=== PATIENT | female | born 1990 | race Caucasian/White ===

== ENCOUNTER 2021-10-22 11:41 | Inpatient (IN) | payer OTHER ==
[~2021-10-22] VITALS: Ht 162.6 cm; Wt 99.8 kg
--- NOTE | 2021-10-22 15:51 | NUR ---
RT COLLECTED RAPID COVID 19 SWAB WITH NO COMPLICATIONS AT THIS TIME.
--- NOTE | 2021-10-22 18:16 | PR ---
[facility] [address] [facility] [place], [place] [address] Signed Progress Notes IP Datetime Report Generated by CPN: 10/22/2021 18:15 PROGRESS NOTES: [id number] Other Impressions: Slow progress Plan: Augmentation; Anticipate Vaginal Delivery VITAL SIGNS: [id number] Vital Signs: Reviewed; Within Normal Limits EXAM: [id number] Dilatation: 4.5 Effacement: 80 Station: -3 MEMBRANES: [id number] Membranes Status: Bulging ROM Note: ROM at 0730 this morning per patient Comments: Patient feeling contractions, but not too strong. No change in cervix for past 2 hours -> will start Pitocin augmentation -> OK for Epidural FETUS A: [id number] FHR Baseline: 130 Variability: Moderate 6-25bpm Accelerations: 15X15 Comments on Fetus A: Cervix 1.5 cm, Vtx per Rn, FETUS B: [id number] Signing Physician: Dominique Tate MD Copies: ~ *Electronically Signed* 10/22/21 1815 DOMINIQUE TATE MD PATIENT NAME: LUCRECIA HUANG PROGRESS NOTE DATE OF : 86 PHYSICIAN: DOMINIQUE TATE MD RPT #: [id number] REPORT IS CONFIDENTIAL AND NOT TO BE RELEASED WITHOUT AUTHORIZATION
--- NOTE | 2021-10-22 22:52 | PR ---
[facility] [address] [place], [place] [address] Signed Progress Notes IP Datetime Report Generated by CPN: 10/22/2021 22:52 PROGRESS NOTES: [id number] Other Impressions: Slow Progress Procedures: Intrauterine Pressure Catheter; Scalp Electrode Plan: Continue Present Management; Augmentation VITAL SIGNS: [id number] Vital Signs: Reviewed; Within Normal Limits EXAM: [id number] Dilatation: 5.0 Effacement: 90 Station: -1 MEMBRANES: [id number] Membranes Status: Ruptured ROM Note: ROM at 0730 this morning per patient Comments: Only 0.5 cm change in past 6 hours, on Pitocin for last 4 hours, with good contraction pattern. Already so me capurt on vertex. IUPC and FEKG applied. Will contineu with Pitocin augmentation, bukt may need to proceed with C/S, if arrest of dilation continues. Discussed with patient. FETUS A: [id number] FHR Baseline: 130 Variability: Moderate 6-25bpm Accelerations: 15X15 Comments on Fetus A: Cervix 1.5 cm, Vtx per Rn, FETUS B: [id number] Signing Physician: Dominique Tate MD Copies: ~ *Electronically Signed* 10/22/21 864 DOMINIQUE TATE MD PATIENT NAME: LUCRECIA HUANG PROGRESS NOTE DATE OF : 86 PHYSICIAN: DOMINIQUE TATE MD RPT #: [id number] REPORT IS CONFIDENTIAL AND NOT TO BE RELEASED WITHOUT AUTHORIZATION
--- NOTE | 2021-10-23 00:03 | PR ---
[facility] [address] [place], [place] [address] Signed Progress Notes IP Datetime Report Generated by CPN: 10/23/2021 00:03 PROGRESS NOTES: [id number] Impression: Arrest of Dilatation/Descent Other Impressions: Slow Progress Procedures: Intrauterine Pressure Catheter; Scalp Electrode Other Procedures: Stop Pitocin Plan: Deliver- Section Informed Consent Obtain: Section Delivery; Risks, Benefits and Alternatives Discussed VITAL SIGNS: [id number] Vital Signs: Reviewed; Within Normal Limits EXAM: [id number] Dilatation: 5.0 Effacement: 90 Station: -1 MEMBRANES: [id number] Membranes Status: Ruptured ROM Note: ROM at 0730 this morning per patient Comments: No real change in 7 hours and 5 hours on Pitocin, with strong, adequate contractions. Discussed C/S risks vs benefits, option of continuing labor, but unlikely to chnage after stalling out this long. Patient agrees to C/S. OR and Anesthesia called faculty i on call medical assistant to OR for Primary C/S for Failure to Progress FETUS A: [id number] FHR Baseline: 130 Variability: Moderate 6-25bpm Accelerations: 15X15 Comments on Fetus A: Cervix 1.5 cm, Vtx per Rn, FETUS B: [id number] Signing Physician: Dominique Tate MD Copies: ~ *Electronically Signed* 10/23/21 DOMINIQUE AMAYA MD PATIENT NAME: LUCRECIA HUANG PROGRESS NOTE DATE OF : 86 PHYSICIAN: DOMINIQUE TATE MD RPT #: [id number] REPORT IS CONFIDENTIAL AND NOT TO BE RELEASED WITHOUT AUTHORIZATION
--- NOTE | 2021-10-23 02:14 | NUR ---
10/23/21 0214 S[address] 0121 INTO [facility] ROOM 6 FROM OR, BEDSIDE REPORT FROM CLAIR BRYANT AND MILY RN. PATIENT APPEARS AWAKE, REPORTS NO PAIN OR NAUSEA. STATES " I JUST FEEL SO CONGESTED" SPINAL AT T11. DRESSING TO SUPRAPUBIC C/D/I. FUNDAL CHECKS WNL. PATIENT BREATHING REGULAR AND EVEN, 100 % ON ROOM AIR. 0130 PATIENT RESTING BACK IN BED, PROVIDED WARM BLANKETS. FUNDAL CHECKS WNL. DRESSING TO SUPRAPUBIC C/D/I. BARBARA PAD HAS MODERATE DRAINAGE. [facility] NURSE AT BEDSIDE ASSISTING WITH FUNDAL CHECK, NOTING DRAIANGE. 0145 PATIENT HOLDING BABY AND BREAST FEEDING. NO COMPLAINTS OF PAIN OR NAUSEA. ANTIBIOTIC DONE INFUSING. STARTED SECOND BAG OF LR W 20 OF PIT NOTIFIED [facility] NURSE OF NEW BAG. IV APPEARS TO BE FUNCTIONING WELL. FUNDAL CHECKS WNL. CHANGED BARBARA PAD. 50 ML OF CLEAR YELLOW URINE EMPTIED FROM HAHN. 0150 BEDSIDE REPORT TO TUTU FIGUEROA. ANSWERED ALL QUESTIONS AND CONCERNS. UTTU TO RESUME CARE.
--- NOTE | 2021-10-23 12:05 | OR ---
[facility] [place] [facility] [address] [place], [place] [address] Signed DATE OF OPERATION: 10/23/2021 SURGEON: Seferino Tariq MD Patient of Dr. Tariq. PREOPERATIVE DIAGNOSIS: Failure to progress. POSTOPERATIVE DIAGNOSES: Failure to progress plus left occiput posterior presentation. PROCEDURE: Primary low transverse segment section delivery live female infant. PATIENT RELATIONS DIRECTOR: Dr. Pugh. ANESTHESIA: Epidural. ESTIMATED BLOOD LOSS: 500 mL. COMPLICATIONS: None. DRAINS: Terry to bladder. FINDINGS: Live female infant, Apgars 9 and 10, weight 6 pounds 10 ounces. Infant was in vertex LOP presentation. Normal tubes and ovaries bilateral. DESCRIPTION OF PROCEDURE: The patient was brought to the operating room, placed in the supine position. After adequate epidural anesthesia was obtained, she was prepped and draped in usual sterile fashion. Terry catheter was already in place. A Pfannenstiel skin incision was made with a scalpel. Subcutaneous tissue was dissected with the Bovie and with the scalpel. The fascia was nicked with scalpel and extended in transverse fashion using curved Electronically Signed By: SEFERINO TARIQ MD 10/23/21 1205 PATIENT NAME: LUCRECIA HUANG OPERATIVE REPORT DATE OF : 86 REPORT #: [id number] PHYSICIAN: SEFERINO TARIQ MD PCP: NO PRIMARY CARE PHYSICIAN REPORT IS CONFIDENTIAL AND NOT TO BE RELEASED WITHOUT AUTHORIZATION [facility] [place] [facility] [address] [place], [place] [address] Signed scissors. The underlying abdominal musculature was bluntly and sharply from the fascia above and below the incision. The abdominal musculature was bluntly and sharply along the midline. The peritoneum was grasped with hemostats, elevated, nicked with scissors and extended in vertical fashion using scissors and blunt dissection. The Evaristo self-retaining retractor was inserted into the incision and tightened in place. The lower uterine segment was identified. The bladder was noted to be well below the area, so a small zahra was made in the lower uterine segment in the midline and the incision extended in transverse fashion using finger dissection. Clear fluid came from the incision. The 's head was noted to be in the vertex LOP presentation. 's head was easily delivered from the incision. The cord was noted to be around the neck once loosely, this was removed and the rest of the easily delivered from the incision. The cord was doubly clamped and cut and the infant passed off in good condition to the awaiting nurse. The placenta was manually removed and uterine cavity explored with a lap pad to remove any retained membranes. An angle stitch of 0 Monocryl was placed at one end of the incision and a running locking stitch of 0-Monocryl starting at the other end used to close the incision. A 2nd running stitch of 0 Monocryl was used to imbricate the 1st layer. There was small amount of bleeding just in the midline. Two lnjswk-ai-lrpgr stitches of 0 Monocryl were used to control the bleeding. At this point, good hemostasis was obtained. The entire pelvis was irrigated, suctioned, examined noted to have good hemostasis. The Evaristo retractor was removed. The anterior wall of peritoneum was closed using running stitch of 2-0 Vicryl suture. The abdominal musculature was reapproximated using interrupted stitches of 0 Vicryl suture. The abdominal wall incision was irrigated, suctioned, and examined, and any bleeding spots were cauterized with the Bovie. The fascia was then closed using two running stitch of 0 Vicryl suture meeting in the midline. Subcutaneous tissue was irrigated, suctioned, and examined, and any bleeding spots were cauterized with the Bovie. Subcutaneous tissue was then closed using interrupted stitches of 3-0 Vicryl suture and the skin was reapproximated using skin clips. The patient tolerated the procedure well, went to the recovery room in good condition. The sponge, needle, and instrument count were correct at the end of the procedure. Seferino Tariq MD MJB/MODL /[id number] Electronically Signed By: SEFERINO TARIQ MD 10/23/21 1205 PATIENT NAME: LUCRECIA HUANG OPERATIVE REPORT DATE OF : 86 REPORT #: [id number] PHYSICIAN: SEFERINO TARIQ MD PCP: NO PRIMARY CARE PHYSICIAN REPORT IS CONFIDENTIAL AND NOT TO BE RELEASED WITHOUT AUTHORIZATION [address] [address] Signed Copies: ~ Electronically Signed By: SEFERINO TARIQ MD 10/23/21 1205 PATIENT NAME: LUCRECIA HUANG AYAZ OPERATIVE REPORT DATE OF : 86 REPORT #: [id number] PHYSICIAN: SEFERINO TARIQ MD PCP: NO PRIMARY CARE PHYSICIAN REPORT IS CONFIDENTIAL AND NOT TO BE RELEASED WITHOUT AUTHORIZATION
--- NOTE | 2021-10-23 12:06 | PR ---
[facility] [address] [facility] [place], [place] [address] Signed PP Progress Notes Datetime Report Generated by CPN: 10/23/2021 12:06 SUBJECTIVE: [id number] Pain: Abnormal Vital Signs: [id number] Vital Signs: Reviewed; Within Normal Limits Abdomen/Uterus: Normal Lochia: Normal Incision: Normal IMPRESSION/PLAN/PROCEDURES: [id number] Impression: Normal Progression Plan: Continue Present Management Procedures: None Progress Notes: Doing well, without complaint. Borderline adequate urine output, so given some IV fluids and encouraged to increase PO fluids. Some nausea and emesis last night, but doing better this morning, so starting to eat. Increase activity as tolerated. D/C Terry when adequate urine output and ready to be up moving. Signing Physician: Dominique Tate MD Copies: ~ *Electronically Signed* 10/23/21 1206 DOMINIQUE TATE MD PATIENT NAME: LUCRECIA HUANG PROGRESS NOTE DATE OF : 86 PHYSICIAN: DOMINIQUE TATE MD RPT #: [id number] REPORT IS CONFIDENTIAL AND NOT TO BE RELEASED WITHOUT AUTHORIZATION
--- NOTE | 2021-10-24 11:31 | PR ---
[facility] [address] [place] [address] Signed PP Progress Notes Datetime Report Generated by CPN: 10/24/2021 11:31 SUBJECTIVE: [id number] Pain: Within Normal Limits Nausea/Vomiting: Denies Vital Signs: [id number] Vital Signs: Reviewed; Within Normal Limits Notable Details: PP Hgb/Hct = 9.1/27.7 Abdomen/Uterus: Normal Lochia: Normal Extremities: Normal Incision: Normal IMPRESSION/PLAN/PROCEDURES: [id number] Impression: Normal Progression Plan: Continue Present Management Procedures: None Progress Notes: Doing well without complaint, tolerating food well, voiding without difficulty. Moving and sitting without problems. Plan home tomorrow. Signing Physician: Dominique Tate MD Copies: ~ *Electronically Signed* 10/24/21 1131 DOMINIQUE TATE MD PATIENT NAME: LUCRECIA HUANG PROGRESS NOTE DATE OF : 86 PHYSICIAN: DOMINIQUE TATE MD RPT #: [id number] REPORT IS CONFIDENTIAL AND NOT TO BE RELEASED WITHOUT AUTHORIZATION
--- NOTE | 2021-10-25 11:11 | PR ---
[facility] [address] [facility] [place] [address] Signed PP Progress Notes Datetime Report Generated by CPN: 10/25/2021 11:11 SUBJECTIVE: [id number] Pain: Within Normal Limits Nausea/Vomiting: Denies Vital Signs: [id number] Vital Signs: Reviewed; Within Normal Limits Notable Details: PP Hgb/Hct = 9.1/27.7 EXAM: Ongoing Abdomen/Uterus: Normal Lochia: Normal Extremities: Normal Incision: Normal IMPRESSION/PLAN/PROCEDURES: [id number] Impression: Normal Progression Plan: Discharge Procedures: None Progress Notes: Doing well, without complaint, ready to go home. Signing Physician: Dominique Tate MD Copies: ~ *Electronically Signed* 10/25/21 1111 DOMINIQUE TATE MD PATIENT NAME: LUCRECIA HUANG PROGRESS NOTE DATE OF : 86 PHYSICIAN: DOMINIQUE TATE MD RPT #: [id number] REPORT IS CONFIDENTIAL AND NOT TO BE RELEASED WITHOUT AUTHORIZATION
== END 2021-10-25 11:50 | disposition home or self-care (01) | DRG 787 ==
LOC: FBCO 11:41 → FBC 12:32
PROVIDERS: ADMIT General Practice; ATTEND General Practice
PROC: 10H07YZ Insertion of Other Device into Products of Conception, Via Natural or Artificial Opening (ICD-10-PCS; 2021-10-23)
PROC: 10D00Z1 Extraction of Products of Conception, Low, Open Approach (ICD-10-PCS; principal; 2021-10-23 00:28)
DX: O32.8XX0 Maternal care for other malpresentation of fetus, not applicable or unspecified (principal); D62 Acute posthemorrhagic anemia; Z20.822 Contact with and (suspected) exposure to COVID-19; Z37.0 Single live birth; O99.03 Anemia complicating the puerperium
CPT/HCPCS: 01961; 36415; 76942; 85027; 86850; 86900; 86901; A9270; C9803; J0456; J0690; J1100; J1885; J2001; J2274; J2405; J2590; J2765; J2795; J7121; U0003

== ENCOUNTER 2022-12-19 05:07 | Inpatient (IN) | payer OTHER | END 2022-12-20 10:32 | disposition home or self-care (01) | DRG 807 | LOC: FBC 05:07 | PROVIDERS: ADMIT Obstetrics & Gynecology; ATTEND Obstetrics & Gynecology | PROC: 10E0XZZ Delivery of Products of Conception, External Approach (ICD-10-PCS; principal; 2022-12-19) | PROC: 0UQGXZZ Repair Vagina, External Approach (ICD-10-PCS; 2022-12-19) | PROC: 0UQMXZZ Repair Vulva, External Approach (ICD-10-PCS; 2022-12-19) | DX: O99.324 Drug use complicating childbirth (principal); Z37.0 Single live birth; F12.90 Cannabis use, unspecified, uncomplicated; O99.314 Alcohol use complicating childbirth; F10.90 Alcohol use, unspecified, uncomplicated; O99.334 Smoking (tobacco) complicating childbirth; F17.210 Nicotine dependence, cigarettes, uncomplicated | CPT/HCPCS: 36415; 85025; 85027; 86780; 86803; 86850; 86900; 86901; 87340; A9270; J2590 ==